=== PATIENT | female | born 1990 | race American Indian/Alaskan Native ===

== ENCOUNTER 2017-05-23 09:24 | Emergency (ER) | payer SELFPAY ==
[2017-05-23] MEDS ORDERED: ZOFRAN ODT PO ONE (09:58)
--- NOTE | 2017-05-23 10:00 | Emergency Department Report ---
Chief Complaint: Abdominal Pain Stated Complaint: ABDOMINAL PAIN - HPI History of Present Illness: 27-year-old female past medical history diabetes type 1 colitis diverticulitis presents with 2 days of nausea vomiting fever and chills. Patient awake alert and oriented 3. Complaining of generalized abdominal pain with significant amounts of watery diarrhea. Denies recent travel. States she has been hospitalized for diverticulitis in the past. - ROS Review of Systems: History of diabetes diverticulitis. 2 days of abdominal pain nausea vomiting and diarrhea - Exam Vital Signs: Vital Signs 05/23/17 09:44 Temperature 98.5 F Pulse Rate 100 H Respiratory 20 Rate Blood Pressure 95/55 O2 Sat by Pulse 100 Oximetry Physical Exam: Generalized abdominal tenderness on palpation MSE screening note: Focused history and physical exam performed. Due to findings the following was ordered: Screening Assessment/Plan/Differential Dx: Possible gastroparesis versus diverticulitis exacerbation 1- This initial assessment/diagnostic orders/clinical plan/ treatment(s) is/are subject to change based on pt's health status, clinical progression and re- assessment by fellow clinical providers in the ED. Further treatment and workup at subsequent clinical provers discretion. Patient/guardians urged not to elope from ED as their condition may be serious if not clinically assessed and managed. 2-abdominal labs, urinalysis, urine 3-antiemetics 4-patient to be seen in the main ED ED Disposition for MSE Condition: Stable Instructions: Abdominal Pain (ED)
[2017-05-23 10:27] LABS: Basophils % (Auto) 0.2 % (0.0-1.8); Eosinophils % (Auto) 0.3 % (0.0-4.3); Hematocrit 43.6 % (30.3-42.9); Hemoglobin 14.7 gm/dl (10.1-14.3); Mean Corpuscular HGB Conc 34 % (30-34); Mean Corpuscular Hemoglobin 32 pg (28-32); Mean Corpuscular Volume 95 fl (79-97); Platelet Count 281 K/mm3 (140-440); Red Blood Count 4.62 M/mm3 (3.65-5.03); Red Cell Distribution Width 13.2 % (13.2-15.2); White Blood Count 8.9 K/mm3 (4.5-11.0)
[2017-05-23 10:40] LABS: Anion Gap 18 mmol/L; BUN/Creatinine Ratio 18; Blood Urea Nitrogen 9 mg/dL (7-17); Calcium 9.1 mg/dL (8.4-10.2); Carbon Dioxide 23 mmol/L (22-30); Chloride 102.2 mmol/L (98-107); Glucose 265 mg/dL (65-100); Potassium 4.4 mmol/L (3.6-5.0); Sodium 139 mmol/L (137-145)
[2017-05-23 10:44] LABS: Alanine Aminotransferase 14 units/L (7-56); Albumin 4.1 g/dL (3.9-5); Albumin/Globulin Ratio 1.1 %; Alkaline Phosphatase 123 units/L (35-129); Amylase 116 units/L (27-131); Lipase 21 units/L (13-60)
[2017-05-23 10:57] LABS: Bilirubin,Direct < 0.2 mg/dL (0-0.2)
[2017-05-23 12:03] LABS: Bilirubin,Urine Negative (Negative); Blood,Urine 2+ (Negative); Ketones,Urine Negative (Negative)
[2017-05-23 12:04] LABS: Leukocyte Esterase,Urine Small (Negative); Nitrite,Urine Negative (Negative); Urobilinogen,Urine < 0.2 mg/dL (<2.0)
[2017-05-23 12:08] LABS: Bacteria,Urine 2+ /HPF (Negative); Mucus,Urine 3+ /HPF; Sperm,Urine 1+ /HPF (NP)
[2017-05-23] MEDS ORDERED: ZOFRAN IV ONE (12:10)
[2017-05-23] MEDS ORDERED: NACL 0.9% 1000 ML 1,000 ML IV ONE (12:10)
[2017-05-23] MEDS ORDERED: TORADOL IV ONE (12:10)
[2017-05-23] MEDS ORDERED: LEVAQUIN 750MG/150ML 750 MG/150 ML BAG IV ONE (12:14)
--- NOTE | 2017-05-23 13:20 | XRay Report ---
LEFT KNEE, 3 views: History: Left knee pain after fall. The bony architecture is intact without evidence of fracture or dislocation. No significant soft tissue abnormality is seen. IMPRESSION: Normal left knee.
[2017-05-23] MEDS ORDERED: DIFLUCAN PO NR (14:05)
--- NOTE | 2017-05-23 14:13 | Cat Scan Report ---
CT ABDOMEN PELVIS WITH CONTRAST: HISTORY: abdominal pain, nausea, vomiting, diarrhea. COMPARISON: none. TECHNIQUE: Helical CT in 1.25mm intervals following IV contrast. Sagittal and coronal reconstructions. FINDINGS: Lung bases: Normal. Liver: Normal. Biliary system: Normal. Pancreas: Normal. Spleen: Normal. Kidneys/ureters/bladder: Normal. Adrenal glands: Normal. Aorta: Normal. Intestines: Normal. Appendix: Normal. Pelvic viscera: Normal. Ascites: None. Adenopathy: None. Musculoskeletal: Normal. IMPRESSION: Unremarkable CT scan of the abdomen and pelvis with contrast. No acute process is appreciated.
[2017-05-23] MEDS ORDERED: IMODIUM PO ONE (14:23)
--- NOTE | 2017-05-23 14:47 | Emergency Department Report ---
ED Abdominal Pain HPI - General Chief Complaint: Abdominal Pain Stated Complaint: ABDOMINAL PAIN Time Seen by Provider: 05/23/17 11:45 Source: patient Mode of arrival: Ambulatory Limitations: No Limitations - History of Present Illness Initial Comments: 27 yo female with a past medical history of type 1 diabetes and previous diagnosis of diverticulitis and colitis presents to the hospital complaining of abdominal pain, nausea, vomiting, and diarrhea 2 days. Patient complains of generalized abdominal pain that is intermittent, sharp, and a bubbling sensation with reflux. Pain is rated as 6 out of 10 intensity and worse with palpation. Patient denies nausea, vomiting, fever, recent travel, sick contacts , or recent antibiotic use. Patient also complains of ongoing left knee pain after she fell landed on her knee. Pain is mostly felt with flexion. PMD: none. Patient moved here from [place] 2 days ago Severity scale (0 -10): 7 - Related Data Previous Rx's Medication Instructions Recorded Last Taken Type Ciprofloxacin HCl [Ciprofloxacin 500 mg PO Q12H #14 tab 05/23/17 Unknown Rx TAB] Ibuprofen [Motrin] 400 mg PO Q8H PRN #30 tablet 05/23/17 Unknown Rx Loperamide [Imodium] 2 mg PO Q2HR PRN #20 capsule 05/23/17 Unknown Rx Ondansetron [Zofran Odt] 4 mg PO Q8HR PRN #20 tab.rapdis 05/23/17 Unknown Rx traMADol [Ultram 50 MG tab] 50 mg PO Q6HR PRN #20 tablet 05/23/17 Unknown Rx Allergies Allergy/AdvReac Type Severity Reaction Status Date / Time hydromorphone [From Dilaudid] Allergy Hives Verified 05/23/17 09:44 ED Review of Systems ROS: Stated complaint: ABDOMINAL PAIN Other details as noted in HPI Comment: All other systems reviewed and negative Other: Constitutional: No fevers chills Eyes: No eye pain visual changes ENT: No ear pain or throat pain Neck: Denies pain Respiratory: Denies cough wheezing shortness of breath Cardiovascular: Denies chest pain, palpitations, syncope GI: As per HPI : Denies dysuria Musculoskeletal: Denies back pain Skin: Denies rash, lesions, erythema Neurologic: Denies headache, numbness, weakness Psychiatric: Denies suicidal ideation, hallucinations ED Past Medical Hx - Past Medical History Previous Medical History?: Yes Hx Diabetes: Yes (Type 1) Additional medical history: Diverticulitis, Colitis, HR irregular - Surgical History Past Surgical History?: No - Social History Smoking Status: Never Smoker Substance Use Type: Prescribed - Medications Home Medications: Home Medications Medication Instructions Recorded Confirmed Last Taken Type Ciprofloxacin HCl [Ciprofloxacin 500 mg PO Q12H #14 tab 05/23/17 Unknown Rx TAB] Ibuprofen [Motrin] 400 mg PO Q8H PRN #30 tablet 05/23/17 Unknown Rx Loperamide [Imodium] 2 mg PO Q2HR PRN #20 capsule 05/23/17 Unknown Rx Ondansetron [Zofran Odt] 4 mg PO Q8HR PRN #20 tab.rapdis 05/23/17 Unknown Rx traMADol [Ultram 50 MG tab] 50 mg PO Q6HR PRN #20 tablet 05/23/17 Unknown Rx ED Physical Exam - General Limitations: No Limitations - Other Other exam information: General: No limitations, mild discomfort secondary to pain Head exam: Atraumatic, normocephalic Eyes exam: Normal appearance, nonicteric sclera ENT: Moist mucous membrane, normal oropharynx Neck exam: Normal inspection, full range of motion, no meningismus nontender Respiratory exam: Clear to auscultation bilateral, no wheezes, rales, crackles Cardiovascular: Normal rate and rhythm, normal heart sounds Abdomen: Soft, nondistended, lower abdominal tenderness, normal bowel sounds, no rebound or guarding Extremity: Full range of motion normal inspection no deformity. Minimal patellar tenderness. No swelling Back: Normal Inspection, full range of motion, no tenderness Neurologic: Alert, oriented x3, cranial nerves intact, no motor or sensory deficit Psychiatric: normal affect, normal mood Skin: Warm, dry, intact ED Course Vital Signs 05/23/17 05/23/17 05/23/17 09:44 11:18 12:47 Temperature 98.5 F 98.8 F Pulse Rate 100 H 69 Respiratory 20 18 18 Rate Blood Pressure 95/55 Blood Pressure 102/57 [Right] O2 Sat by Pulse 100 98 Oximetry - Reevaluation(s) Reevaluation #1: 05/23/17 14:48 Patient received Toradol, normal saline, and received by mouth Zofran prior to my evaluation with improving symptoms. Tolerating by mouth. Pain-free ED Medical Decision Making - Lab Data Result diagrams: 05/23/17 10:06 12/12/17 10:06 Lab Results 05/23/17 05/23/17 05/23/17 Range/Units 10:06 10:06 10:06 WBC 8.9 (4.5-11.0) K/mm3 RBC 4.62 (3.65-5.03) M/mm3 Hgb 14.7 H (10.1-14.3) gm/dl Hct 43.6 H (30.3-42.9) % MCV 95 (79-97) fl MCH 32 (28-32) pg MCHC 34 (30-34) % RDW 13.2 (13.2-15.2) % Plt Count 281 (140-440) K/mm3 Lymph % (Auto) 7.9 L (13.4-35.0) % [place] % (Auto) 4.0 (0.0-7.3) % Eos % (Auto) 0.3 (0.0-4.3) % Baso % (Auto) 0.2 (0.0-1.8) % Lymph # 0.7 L (1.2-5.4) K/mm3 [place] # 0.4 (0.0-0.8) K/mm3 Eos # 0.0 (0.0-0.4) K/mm3 Baso # 0.0 (0.0-0.1) K/mm3 Seg Neutrophils % 87.6 H (40.0-70.0) % Seg Neutrophils # 7.8 H (1.8-7.7) K/mm3 Sodium 139 (137-145) mmol/L Potassium 4.4 (3.6-5.0) mmol/L Chloride 102.2 (98-107) mmol/L Carbon Dioxide 23 (22-30) mmol/L Anion Gap 18 mmol/L BUN 9 (7-17) mg/dL Creatinine 0.5 L (0.7-1.2) mg/dL Estimated GFR > 60 ml/min BUN/Creatinine Ratio 18 % Glucose 265 H (65-100) mg/dL POC Glucose (70-105) Lactic Acid (0.7-2.0) mmol/L Calcium 9.1 (8.4-10.2) mg/dL Total Bilirubin 1.00 (0.1-1.2) mg/dL Direct Bilirubin < 0.2 (0-0.2) mg/dL AST 19 (5-40) units/L ALT 14 (7-56) units/L Alkaline Phosphatase 123 (35-129) units/L Total Protein 8.0 (6.3-8.2) g/dL Albumin 4.1 (3.9-5) g/dL Albumin/Globulin Ratio 1.1 % Amylase 116 (27-131) units/L Lipase 21 (13-60) units/L Urine Color (Yellow) Urine Turbidity (Clear) Urine pH (5.0-7.0) Ur Specific [place] (1.003-1.030) Urine Protein (Negative) mg/dL Urine Glucose (UA) (Negative) mg/dL Urine Ketones (Negative) mg/dL Urine Blood (Negative) Urine Nitrite (Negative) Ur Reducing Substances Urine Bilirubin (Negative) Urine Ictotest Urine Urobilinogen (<2.0) mg/dL Ur Leukocyte Esterase (Negative) Urine WBC (Auto) (0.0-6.0) /HPF Urine RBC (Auto) (0.0-6.0) /HPF U Epithel Cells (Auto) (0-13.0) /HPF Urine Bacteria (Auto) (Negative) /HPF Calcium Oxalate Crystal Hyaline Casts /LPF Urine Mucus /HPF Urine Yeast (Budding) /HPF Urine Sperm (FOOD DEHYDRATOR OPERATOR) /HPF Urine HCG, Qual (Negative) 05/23/17 05/23/17 05/23/17 Range/Units 10:06 11:11 13:05 WBC (4.5-11.0) K/mm3 RBC (3.65-5.03) M/mm3 Hgb (10.1-14.3) gm/dl Hct (30.3-42.9) % MCV (79-97) fl MCH (28-32) pg MCHC (30-34) % RDW (13.2-15.2) % Plt Count (140-440) K/mm3 Lymph % (Auto) (13.4-35.0) % [place] % (Auto) (0.0-7.3) % Eos % (Auto) (0.0-4.3) % Baso % (Auto) (0.0-1.8) % Lymph # (1.2-5.4) K/mm3 [place] # (0.0-0.8) K/mm3 Eos # (0.0-0.4) K/mm3 Baso # (0.0-0.1) K/mm3 Seg Neutrophils % (40.0-70.0) % Seg Neutrophils # (1.8-7.7) K/mm3 Sodium (137-145) mmol/L Potassium (3.6-5.0) mmol/L Chloride (98-107) mmol/L Carbon Dioxide (22-30) mmol/L Anion Gap mmol/L BUN (7-17) mg/dL Creatinine (0.7-1.2) mg/dL Estimated GFR ml/min BUN/Creatinine Ratio % Glucose (65-100) mg/dL POC Glucose 284 H (70-105) Lactic Acid 1.30 (0.7-2.0) mmol/L Calcium (8.4-10.2) mg/dL Total Bilirubin (0.1-1.2) mg/dL Direct Bilirubin (0-0.2) mg/dL AST (5-40) units/L ALT (7-56) units/L Alkaline Phosphatase (35-129) units/L Total Protein (6.3-8.2) g/dL Albumin (3.9-5) g/dL Albumin/Globulin Ratio % Amylase (27-131) units/L Lipase (13-60) units/L Urine Color Yellow (Yellow) Urine Turbidity Clear (Clear) Urine pH 5.0 (5.0-7.0) Ur Specific [place] 1.035 H (1.003-1.030) Urine Protein 30 mg/dl (Negative) mg/dL Urine Glucose (UA) 3+ (Negative) mg/dL Urine Ketones Negative (Negative) mg/dL Urine Blood 2+ (Negative) Urine Nitrite Negative (Negative) Ur Reducing Substances Not Reportable Urine Bilirubin Negative (Negative) Urine Ictotest Not Reportable Urine Urobilinogen < 0.2 (<2.0) mg/dL Ur Leukocyte Esterase Small (Negative) Urine WBC (Auto) 10.0 H (0.0-6.0) /HPF Urine RBC (Auto) 2.0 (0.0-6.0) /HPF U Epithel Cells (Auto) 6.0 (0-13.0) /HPF Urine Bacteria (Auto) 2+ (Negative) /HPF Calcium Oxalate Crystal 3+ Hyaline Casts 41 /LPF Urine Mucus 3+ /HPF Urine Yeast (Budding) 1+ /HPF Urine Sperm 1+ (FOOD DEHYDRATOR OPERATOR) /HPF Urine HCG, Qual Negative (Negative) - Radiology Data Radiology results: report reviewed read by radiologist CT abdomen and pelvis with IV contrast: No acute findings Left knee x-ray: Normal - Medical Decision Making Patient diagnosis is gastroenteritis. Improved with IV fluids, Zofran, Toradol , and Imodium UA has white cells, and yeast. Patient received Diflucan 150 in the ED and a dose of IV Levaquin. Will be discharged on Cipro Stool studies sent and pending but initial occult blood positive and white count negative. CT abdomen and pelvis IV contrast without acute abnormality No signs of DKA Patient was discharged home with symptomatic treatment for acute gastroenteritis. Cipro will also be prescribed. Patient states she can tolerate tramadol and will be prescribed for pain as well - Differential Diagnosis diverticulitis, colitis, gastroenteritis, DKA, pancreatitis, cholecystitis Critical Care Time: No Critical care attestation.: If time is entered above; I have spent that time in minutes in the direct care of this critically ill patient, excluding procedure time. ED Disposition Clinical Impression: Gastroenteritis, UTI (urinary tract infection), Yeast vaginitis, Contusion of left knee Disposition: TO HOME OR SELFCARE Is pt being admited?: No Does the pt Need Aspirin: No Condition: Stable Instructions: Gastroenteritis (ED), Vulvovaginal Candidiasis (ED), Urinary Tract Infection in Women (ED), Knee Pain (ED) Additional Instructions: Take the medication as prescribed. Follow with your doctor. Return if symptoms worsen Prescriptions: Ciprofloxacin HCl [Ciprofloxacin TAB] 500 mg PO Q12H #14 tab Ibuprofen [Motrin] 400 mg PO Q8H PRN #30 tablet PRN Reason: Pain Loperamide [Imodium] 2 mg PO Q2HR PRN #20 capsule PRN Reason: Diarrhea Ondansetron [Zofran Odt] 4 mg PO Q8HR PRN #20 tab.rapdis PRN Reason: Nausea And Vomiting traMADol [Ultram 50 MG tab] 50 mg PO Q6HR PRN #20 tablet PRN Reason: Pain Referrals: MICHAEL WOMACK MD [Primary Care Provider] - 3-5 Days [facility] [Provider Group] - 3-5 Days Time of Disposition: 15:11
[2017-05-23 14:52] VITALS: BP 112/66
== END 2017-05-23 15:44 | disposition home or self-care (01) ==
LOC: ED 09:24
DX: S80.02XA Contusion of left knee, initial encounter (principal); K52.89 Other specified noninfective gastroenteritis and colitis; N39.0 Urinary tract infection, site not specified; B37.3 Candidiasis of vulva and vagina; E10.9 Type 1 diabetes mellitus without complications; K57.92 Diverticulitis of intestine, part unspecified, without perforation or abscess without bleeding; K52.9 Noninfective gastroenteritis and colitis, unspecified; Z88.8 Allergy status to other drugs, medicaments and biological substances; W17.89XA Other fall from one level to another, initial encounter; Y93.89 Activity, other specified; Y92.89 Other specified places as the place of occurrence of the external cause; Y99.8 Other external cause status
CPT/HCPCS: 36415; 73562; 74177; 80048; 80074; 81001; 81025; 82140; 82150; 82270; 82962; 83690; 85007; 85025; 87045; 87086; 87493; 96365; 96375; 99284; J1885; J7030; Q9967; J1815; J1956; Q0162

== ENCOUNTER 2017-06-30 09:43 | Emergency (ER) | payer SELFPAY ==
[2017-06-30 10:30] VITALS: BP 94/57
[2017-06-30] MEDS ORDERED: ASPIRIN PO ONE (10:30)
[2017-06-30 10:55] LABS: Basophils % (Auto) 0.3 % (0.0-1.8); Eosinophils # (Auto) 0.1 K/mm3 (0.0-0.4); Eosinophils % (Auto) 1.1 % (0.0-4.3); Hematocrit 42.5 % (30.3-42.9); Hemoglobin 14.3 gm/dl (10.1-14.3); Lymphocytes # (Auto) 1.3 K/mm3 (1.2-5.4); Mean Corpuscular HGB Conc 34 % (30-34); Mean Corpuscular Hemoglobin 32 pg (28-32); Mean Corpuscular Volume 94 fl (79-97); Monocytes # (Auto) 0.6 K/mm3 (0.0-0.8); Platelet Count 282 K/mm3 (140-440); Red Cell Distribution Width 13.3 % (13.2-15.2)
[2017-06-30 11:12] LABS: BUN/Creatinine Ratio 10; Blood Urea Nitrogen 5 mg/dL (7-17); Hemolysis Index 7
== END 2017-06-30 17:30 | disposition left against medical advice (07) ==
LOC: ED 09:43
DX: J02.9 Acute pharyngitis, unspecified (principal); Z53.21 Procedure and treatment not carried out due to patient leaving prior to being seen by health care provider
CPT/HCPCS: 36415; 80048; 84484; 84703; 85025; 93005; 93010

== ENCOUNTER 2021-05-24 21:49 | Emergency (ER) | payer SELFPAY ==
[2021-05-24 22:14] VITALS: BP 91/59
[2021-05-24] MEDS ORDERED: ONDANSETRON 4 MG/2 ML INJ IV ONE (22:38)
[2021-05-24] MEDS ORDERED: SODIUM CHLORIDE 0.9% 1000 ML 1,000 ML IV ONE (22:38)
[2021-05-24 22:44] LABS: Bilirubin,Urine NEG (Negative); Blood,Urine NEG (Negative); Color,Urine Yellow (Yellow); Mucus,Urine FEW /HPF; Protein,Urine <15 mg/dL mg/dL (Negative); Urobilinogen,Urine < 2.0 mg/dL (<2.0)
--- NOTE | 2021-05-24 22:47 | Emergency Department Report ---
HPI - General Chief Complaint: Weakness Time Seen by Provider: 05/24/21 22:32 - HPI HPI: 31-year-old -[place] female presents to the emergency department with a complaint of a 1.5-week history of nausea vomiting, diarrhea, lightheadedness and generalized weakness. The patient says that her blood sugar has been labile but lately has been mostly elevated. She says that prior to presentation today her blood sugar was 280 so the patient gave herself a dose of insulin. She also says that her blood pressure has been running low. She says that this does not usually happen unless she is . She took a home test 2 days ago but says that it was negative at that time. She has a past medical history of diabetes, gastroparesis, GERD. No recent travel or sick contacts at home. ED Past Medical Hx - Past Medical History Hx Diabetes: Yes (Type 1) Additional medical history: Diverticulitis, Colitis, HR irregular - Surgical History Past Surgical History?: Yes Additional Surgical History: LEFTLEG - Social History Smoking Status: Never Smoker Substance Use Type: None - Medications Home Medications: Home Medications Medication Instructions Recorded Confirmed Last Taken Type Ciprofloxacin HCl [Ciprofloxacin 500 mg PO Q12H #14 tab 05/23/17 Unknown Rx TAB] Ibuprofen [Motrin] 400 mg PO Q8H PRN #30 tablet 05/23/17 Unknown Rx Loperamide [Imodium] 2 mg PO Q2HR PRN #20 capsule 05/23/17 Unknown Rx Ondansetron [Zofran Odt] 4 mg PO Q8HR PRN #20 tab.rapdis 05/23/17 Unknown Rx traMADoL [Ultram 50 MG tab] 50 mg PO Q6HR PRN #20 tablet 05/23/17 Unknown Rx Vit-Fe Fumar-FA [ 1 tab PO QDAY #30 tablet 05/25/21 Unknown Rx Vitamin] ED Review of Systems ROS: Stated complaint: DIARRHEA/VOMITING Other details as noted in HPI Comment: All other systems reviewed and negative Constitutional: weakness. denies: fever Eyes: denies: eye pain, vision change ENT: denies: ear pain, throat pain Respiratory: shortness of breath. denies: cough Cardiovascular: denies: chest pain, palpitations Gastrointestinal: nausea, vomiting, diarrhea Genitourinary: denies: dysuria, discharge Musculoskeletal: denies: back pain, joint swelling Skin: denies: rash, lesions Neurological: denies: numbness, paresthesias Physical Exam - Physical Exam Vital Signs: Vital Signs 05/24/21 22:06 Temperature 98.3 F Pulse Rate 101 H Respiratory 18 Rate Blood Pressure 91/59 [Right] O2 Sat by Pulse 98 Oximetry Physical Exam: GENERAL: The patient is well-developed well-nourished. HENT: Normocephalic. Atraumatic. Patient has moist mucous membranes. EYES: Extraocular motions are intact. NECK: Supple. Trachea is midline. CHEST/LUNGS: Clear to auscultation. No tachypnea or accessory muscle use. HEART/CARDIOVASCULAR: Regular. There is no tachycardia. There is no murmur. ABDOMEN: Abdomen is soft, nontender. Patient has hyperactive bowel sounds. There is no abdominal distention. SKIN: Skin is warm and dry. NEURO: The patient is awake, alert, and oriented. The patient is cooperative. The patient has no focal neurologic deficits. Normal speech. MUSCULOSKELETAL: There is no tenderness or deformity. There is no limitation range of motion. ED Course Vital Signs 05/24/21 22:06 Temperature 98.3 F Pulse Rate 101 H Respiratory 18 Rate Blood Pressure 91/59 [Right] O2 Sat by Pulse 98 Oximetry ED Medical Decision Making - Lab Data Result diagrams: 05/24/21 23:04 05/24/21 23:04 Lab Results 05/24/21 05/24/21 05/24/21 Range/Units 22:31 23:04 23:04 WBC 6.5 (4.5-11.0) K/mm3 RBC 4.14 (3.65-5.03) M/mm3 Hgb 13.3 (10.1-14.3) gm/dl Hct 39.6 (30.3-42.9) % MCV 96 (79-97) fl MCH 32 (28-32) pg MCHC 34 (30-34) % RDW 12.4 L (13.2-15.2) % Plt Count 324 (140-440) K/mm3 Lymph % (Auto) 37.6 H (13.4-35.0) % [place] % (Auto) 8.0 H (0.0-7.3) % Eos % (Auto) 0.7 (0.0-4.3) % Baso % (Auto) 0.4 (0.0-1.8) % Lymph # (Auto) 2.4 (1.2-5.4) K/mm3 [place] # (Auto) 0.5 (0.0-0.8) K/mm3 Eos # (Auto) 0.0 (0.0-0.4) K/mm3 Baso # (Auto) 0.0 (0.0-0.1) K/mm3 Seg Neutrophils % 53.3 (40.0-70.0) % Seg Neutrophils # 3.5 (1.8-7.7) K/mm3 Sodium 136 L (137-145) mmol/L Potassium 3.8 (3.6-5.0) mmol/L Chloride 97.4 L (98-107) mmol/L Carbon Dioxide 29 (22-30) mmol/L Anion Gap 13 mmol/L BUN 10 (7-17) mg/dL Creatinine 0.5 L (0.6-1.2) mg/dL Estimated GFR > 60 ml/min BUN/Creatinine Ratio 20 % Glucose 235 H (65-100) mg/dL Calcium 9.5 (8.4-10.2) mg/dL Total Bilirubin 0.80 (0.1-1.2) mg/dL AST 18 (5-40) units/L ALT 13 (7-56) units/L Alkaline Phosphatase 131 H (35-129) units/L Total Protein 7.9 (6.3-8.2) g/dL Albumin 4.3 (3.9-5) g/dL Albumin/Globulin Ratio 1.2 % TSH (0.270-4.200) mlU/mL HCG, Quant (0-4) mIU/mL Urine Color Yellow (Yellow) Urine Turbidity Clear (Clear) Urine pH 7.0 (5.0-7.0) Ur Specific [place] 1.030 (1.003-1.030) Urine Protein <15 mg/dl (Negative) mg/dL Urine Glucose (UA) >=500 (Negative) mg/dL Urine Ketones Neg (Negative) mg/dL Urine Blood Neg (Negative) Urine Nitrite Neg (Negative) Urine Bilirubin Neg (Negative) Urine Urobilinogen < 2.0 (<2.0) mg/dL Ur Leukocyte Esterase Neg (Negative) Urine WBC (Auto) 2.0 (0.0-6.0) /HPF Urine RBC (Auto) 1.0 (0.0-6.0) /HPF U Epithel Cells (Auto) 12.0 (0-13.0) /HPF Urine Mucus Few /HPF Urine HCG, Qual Positive A (Negative) 05/24/21 05/24/21 Range/Units 23:04 23:04 WBC (4.5-11.0) K/mm3 RBC (3.65-5.03) M/mm3 Hgb (10.1-14.3) gm/dl Hct (30.3-42.9) % MCV (79-97) fl MCH (28-32) pg MCHC (30-34) % RDW (13.2-15.2) % Plt Count (140-440) K/mm3 Lymph % (Auto) (13.4-35.0) % [place] % (Auto) (0.0-7.3) % Eos % (Auto) (0.0-4.3) % Baso % (Auto) (0.0-1.8) % Lymph # (Auto) (1.2-5.4) K/mm3 [place] # (Auto) (0.0-0.8) K/mm3 Eos # (Auto) (0.0-0.4) K/mm3 Baso # (Auto) (0.0-0.1) K/mm3 Seg Neutrophils % (40.0-70.0) % Seg Neutrophils # (1.8-7.7) K/mm3 Sodium (137-145) mmol/L Potassium (3.6-5.0) mmol/L Chloride (98-107) mmol/L Carbon Dioxide (22-30) mmol/L Anion Gap mmol/L BUN (7-17) mg/dL Creatinine (0.6-1.2) mg/dL Estimated GFR ml/min BUN/Creatinine Ratio % Glucose (65-100) mg/dL Calcium (8.4-10.2) mg/dL Total Bilirubin (0.1-1.2) mg/dL AST (5-40) units/L ALT (7-56) units/L Alkaline Phosphatase (35-129) units/L Total Protein (6.3-8.2) g/dL Albumin (3.9-5) g/dL Albumin/Globulin Ratio % TSH 3.390 (0.270-4.200) mlU/mL HCG, Quant 2899 H (0-4) mIU/mL Urine Color (Yellow) Urine Turbidity (Clear) Urine pH (5.0-7.0) Ur Specific [place] (1.003-1.030) Urine Protein (Negative) mg/dL Urine Glucose (UA) (Negative) mg/dL Urine Ketones (Negative) mg/dL Urine Blood (Negative) Urine Nitrite (Negative) Urine Bilirubin (Negative) Urine Urobilinogen (<2.0) mg/dL Ur Leukocyte Esterase (Negative) Urine WBC (Auto) (0.0-6.0) /HPF Urine RBC (Auto) (0.0-6.0) /HPF U Epithel Cells (Auto) (0-13.0) /HPF Urine Mucus /HPF Urine HCG, Qual (Negative) - Radiology Data Radiology results: report reviewed ULTRASOUND OBSTETRIC REASON FOR EXAM: Preg, Abd pain TECHNIQUE: Transabdominal and transvaginal ultrasound was performed to evaluate a first trimester . COMPARISON: None available. FINDINGS: FINDINGS: Possible intrauterine gestational sac measures 5 mm in mean sac diameter, corresponding to a gestational age of 5 weeks and 2 days. No discrete yolk sac or pole. No perigestational hemorrhage is identified. MATERNAL FINDINGS: The uterus measures 8.9 x 4.2 x 4.3 cm. The endometrial stripe measures 7 mm. The right ovary demonstrates a normal sonographic appearance. The left ovary is not visualized. No significant cystic or solid mass in the left adnexa. Cul-de-sac: There is no free fluid. IMPRESSION: Possible small intrauterine gestational sac with measurements corresponding to a gestational age of 5 weeks and 2 days. No yolk sac or pole is identified at this time. Recommend follow-up with beta hCG and pelvic ultrasound, as clinically indicated. - Medical Decision Making This patient presents to the emergency department with a 1.5-week history of nausea with vomiting, diarrhea, and some generalized weakness/fatigue. On examination she does not have any focal, motor or sensory deficits and cranial nerves are intact. Heart and lung sounds are normal to auscultation and the patient does not appear in any respiratory or acute distress. Patient says that she had had some recent low blood pressure which only occurs when she is . The patient vital signs are reassuring and her blood pressure has a MAP of 69, but the patient is in fact . She has a beta- hCG of about 2900. ultrasound shows a small possible gestational sac, wi thout evidence yet of a yolk sac or pole, and she would have a gestational age of 5 weeks and 2 days. I explained all this to the patient and also instructed her to follow-up with [facility], or if necessary return to the emergency department, in about 4 to 5 days for a repeat hormone level and possibly repeat ultrasound. The patient also had the complaint of having recent elevated and/or uncontrolled blood sugar. Her serum blood sugar today was at about 230. There is no significant elevation in her anion gap and she does not appear to be in diabetic ketoacidosis. The rest the patient's labs were unremarkable including CBC, metabolic panel, urinalysis. Patient was given IV fluid resuscitation and a dose of an IV antiemetic. She was reevaluated multiple times over multiple hours and is feeling improved. There has been no further nausea or vomiting while in the emergency department. Patient will be discharged home with prescription for vitamins and outpatient referrals for [facility]. She will return to the emergency department with any worsening of her symptoms or with any acute distress. Critical Care Time: No Critical care attestation.: If time is entered above; I have spent that time in minutes in the direct care of this critically ill patient, excluding procedure time. ED Disposition Clinical Impression: Hyperglycemia Qualifiers: Weeks of gestation: less than 8 weeks Qualified Code(s): Z3A.01 - Less than 8 weeks gestation of Nausea & vomiting Qualifiers: Vomiting type: unspecified Qualified Code(s): R11.2 - Nausea with vomiting, unspecified Disposition: 01 HOME / SELF CARE / HOMELESS Is pt being admited?: No Condition: Stable Instructions: First Trimester of , [id number], Hyperglycemia, Nausea and Vomiting, Adult Additional Instructions: Please follow-up with a primary care physician in the next few days. Increase your oral rehydration. Your blood sugar was elevated today at a level of about 230. However, you do not appear to be in diabetic ketoacidosis, a complication of diabetes. Please try to stay away from foods that are high in sugar, carbohydrates and starches. Keep a blood sugar log. Your hormone level, beta hCG, was about 2900. Your ultrasound shows a gestational sac within the uterus and you appear to have an early at about 5 weeks gestation. Please follow-up with an [facility] in the next few days. I have given you multiple local [facility] groups for follow-up. Return to the emergency department with any vaginal bleeding, pelvic cramping pain. You can take Tylenol every 4-6 hours, using dosing on the back of the bottle, as needed for fever or discomfort. I am starting you on vitamins. Otherwise, do not take any medications that are not prescribed by a physician who knows that you are currently . Return to the emergency department with any worsening of your symptoms, new or concerning symptoms not addressed during this current emergency department visit, or with any acute distress. Prescriptions: Vit-Fe Fumar-FA [ Vitamin] 1 tab PO QDAY #30 tablet Referrals: PRIMARY CARE [Primary Care Provider] - 3-5 Days [facility] [Provider Group] - 3-5 Days [facility] [Provider Group] - 3-5 Days [facility] [Provider Group] - 3-5 Days [facility] [Provider Group] - 3-5 Days Forms: Work/School Release Form(ED) Time of Disposition: 01:41
[2021-05-24 22:57] LABS: HCG Qualitative,Urine Positive (Negative)
[2021-05-24 23:20] LABS: Basophils % (Auto) 0.4 % (0.0-1.8); Eosinophils % (Auto) 0.7 % (0.0-4.3); Hematocrit 39.6 % (30.3-42.9); Hemoglobin 13.3 gm/dl (10.1-14.3); Lymphocytes # (Auto) 2.4 K/mm3 (1.2-5.4); Lymphocytes % (Auto) 37.6 % (13.4-35.0); Mean Corpuscular HGB Conc 34 % (30-34); Mean Corpuscular Volume 96 fl (79-97); Monocytes # (Auto) 0.5 K/mm3 (0.0-0.8); Platelet Count 324 K/mm3 (140-440); Red Blood Count 4.14 M/mm3 (3.65-5.03); Red Cell Distribution Width 12.4 % (13.2-15.2)
[2021-05-24 23:42] LABS: Alanine Aminotransferase 13 units/L (7-56); Albumin 4.3 g/dL (3.9-5); Blood Urea Nitrogen 10 mg/dL (7-17); Calcium 9.5 mg/dL (8.4-10.2); Hemolysis Index 11
[2021-05-25 00:28] LABS: BUN/Creatinine Ratio 20
--- NOTE | 2021-05-25 01:08 | Ultrasound Report ---
ULTRASOUND OBSTETRIC REASON FOR EXAM: Preg, Abd pain TECHNIQUE: Transabdominal and transvaginal ultrasound was performed to evaluate a first trimester pre gnancy. COMPARISON: None available. FINDINGS: FINDINGS: Possible intrauterine gestational sac measures 5 mm in mean sac diameter, corresponding to a gestatio nal age of 5 weeks and 2 days. No discrete yolk sac or pole. No perigestational hemorrhage is identified. MATERNAL FINDINGS: The uterus measures 8.9 x 4.2 x 4.3 cm. The endometrial stripe measures 7 mm. The right ovary demonstrates a normal sonographic appearance. The left ovary is not visualized. No significant cystic or solid mass in the left adnexa. Cul-de-sac: There is no free fluid. IMPRESSION: Possible small intrauterine gestational sac with measurements corresponding to a gestational age of 5 weeks and 2 days. No yolk sac or pole is identified at this time. Recommend follow-up with bet a hCG and pelvic ultrasound, as clinically indicated. Signer Name: Mak Javier MD Signed: 05/25/2021 1:03 AM Workstation Name: [id number]
== END 2021-05-25 02:00 | disposition home or self-care (01) ==
LOC: ED 21:49
DX: O24.911 Unspecified diabetes mellitus in pregnancy, first trimester (principal); E10.65 Type 1 diabetes mellitus with hyperglycemia; O21.9 Vomiting of pregnancy, unspecified; Z3A.01 Less than 8 weeks gestation of pregnancy
CPT/HCPCS: 36415; 76801; 80053; 81001; 81025; 84443; 84702; 85025; 96361; 96374; 99284; J2405; J7030; Q0162